=== PATIENT | male | born 1975 | race Caucasian/White ===

== ENCOUNTER → 2019-02-05 07:02 | Outpatient (CLI) | payer BC, SELFPAY ==
--- NOTE | 2019-02-05 07:18 | MRI_ITS ---
STUDY: MRI BRAIN WITH AND WITHOUT CONTRAST REASON FOR EXAM: Male, 43 years old. parosmia; pt c/o phantom smoke smell x 7 mos TECHNIQUE: Standardized multiplanar fat and water weighted pulse sequences were obtained. 17 IV Dotarem was administered for the contrast portion of the examination. COMPARISON: None. FINDINGS: Normal size of the ventricles and extra-axial spaces for the patient's age. Normal white matter tracts of the supratentorial brain. Normal bilateral basal ganglia. Normal thalami. There is no extra-axial fluid accumulation. Normal flow voids within the major intracranial circulation suggesting patency by spin echo criteria. Normal venous enhancement. There is no enhancing intra-axial or extra-axial abnormality. Normal sella turcica, pituitary gland, infundibular stalk, optic chiasm and hypothalamus. Normal tectal plate and pineal gland. Normal midbrain, yudi and medulla. Normal cerebellum. Normal basal cisterns. Normal bilateral temporal bones. Normal bilateral internal auditory canals. No demonstrated orbital abnormality, within the constraints of a routine brain study. There is a small right maxillary sinus retention cyst. Normal calvarium and skull base. Normal visualized soft tissue structures. Normal visualized upper cervical spine. MRI/Brain W/WO Contrast IMPRESSION: Normal unenhanced and enhanced MRI of the brain. Electronically Signed: Brian Gutiérrez, at 11:27 EDT Tel , Service support ,
== END ==
PROVIDERS: Family Provider Family Medicine; PCP Family Medicine; Referring Provider Otolaryngology Otolaryngology/Facial Plastic Surgery; Visit Provider Otolaryngology Otolaryngology/Facial Plastic Surgery
DX: R43.1 Parosmia (principal)
CPT/HCPCS: 70553; A9575

== ENCOUNTER → 2020-06-25 10:52 | Outpatient (CLI) | payer BC, SELFPAY ==
--- NOTE | 2020-06-25 11:00 | MRI_ITS ---
STUDY: MRI LUMBAR SPINE WITHOUT CONTRAST REASON FOR EXAM: Male, 44 years old. Low-mid back pain that radiates down both legs. Symptoms x 20+years TECHNIQUE: Standardized fat and water weighted pulse sequences were obtained in the sagittal and axial planes. COMPARISON: None FINDINGS: Normal lumbar lordosis. There is no substantial scoliosis. Normal conus medullaris that terminates at the L1. L1-2: Normal endplates. Normal disc height, hydration and morphology. Normal bilateral facet joints. Normal central canal and bilateral lateral recesses. Normal bilateral intervertebral neural foramina. L2-3: There is minimal disc space narrowing and endplate spondylosis. There is no significant disc herniation, central canal or foraminal stenosis. L3-4: There is mild disc space narrowing and endplates spondylosis. Mild disc bulge with posterior annular fissure and facet arthropathy without significant central canal or foraminal stenosis. L4-5: There is mild disc space narrowing and endplates spondylosis. Mild disc bulge with posterior annular fissure and facet arthropathy without significant central canal or foraminal stenosis. L5-S1: There is moderate disc space narrowing and endplates spondylosis. Moderate disc osteophyte complex and mild facet arthropathy without significant central canal stenosis. Moderate right and moderate left foraminal stenosis. Normal visualized sacral ala. Normal visualized paraspinous soft tissue structures. MRI/Spine Lumbar (Routine) IMPRESSION: L5/S1: Moderate right and moderate left foraminal stenosis. Electronically Signed: Lucho Diego MD at 16:03 EST Tel , Service support ,
== END ==
PROVIDERS: PCP Family Medicine; Referring Provider Family Medicine; Visit Provider Family Medicine
DX: M54.5 Low back pain (principal); M48.9 Spondylopathy, unspecified; M19.90 Unspecified osteoarthritis, unspecified site; M47.819 Spondylosis without myelopathy or radiculopathy, site unspecified
CPT/HCPCS: 72148

== ENCOUNTER 2020-12-09 14:03 | Outpatient (RCR) | payer BC, SELFPAY | END 2021-01-13 23:59 | LOC: IMMUN 14:03 | PROVIDERS: PCP Family Medicine; Referring Provider Family Medicine; Visit Provider Family Medicine | DX: Z23 Encounter for immunization (principal) | CPT/HCPCS: 0001A; 0002A; 91300 ==